=== PATIENT | female | born 1995 | race Caucasian/White ===

== ENCOUNTER 2016-04-26 14:49 | Emergency (ER) | payer OTHER ==
[2016-04-26] MEDS ORDERED: DEPO SHOT (15:10)
[2016-04-26] MEDS ORDERED: CYCLOBENZAPRINE10 M1 PO (17:57)
== END 2016-04-26 18:14 ==
LOC: EDMED 14:49
DX: S06.0X0A Concussion without loss of consciousness, initial encounter (principal); S16.1XXA Strain of muscle, fascia and tendon at neck level, initial encounter; V49.40XA Driver injured in collision with unspecified motor vehicles in traffic accident, initial encounter; Y92.410 Unspecified street and highway as the place of occurrence of the external cause
CPT/HCPCS: J1885